=== PATIENT | female | born 1980 | race Caucasian/White ===

== ENCOUNTER → 2019-03-15 13:26 | Outpatient (CLI) | payer BC, SELFPAY ==
--- NOTE | 2019-03-15 13:36 | US_ITS ---
US breast RT complete INDICATION: Palpable nodule at 7:00 ORDERING PHYSICIAN: Ang Lopez PATIENT AGE: 38 years COMPARISON: 05/18/2013 TECHNIQUE: Right breast ultrasound complete axilla FINDINGS: At 7:00 there is an 8 x 3 x 6 mm cyst. This is near the nipple. At 10:00 there is a 4 mm cyst. No other abnormalities are evident. IMPRESSION: There is an 8 mm cyst at 7:00 region near the nipple which may correspond to the palpable abnormality. Suggest completing work up with right mammogram. BI-RADS Category: 0 Need Additional Imaging Evaluation RECOMMENDED FOLLOW-UP: IMM - IMMEDIATE FOLLOW-UP RECOMMENDED (A letter has been sent to the patient regarding results of the study.)
== END ==
PROVIDERS: PCP Internal Medicine; Visit Provider Internal Medicine
DX: N63.14 Unspecified lump in the right breast, lower inner quadrant (principal)
CPT/HCPCS: 76641

== ENCOUNTER → 2019-03-23 14:11 | Outpatient (CLI) | payer BC, SELFPAY ==
--- NOTE | 2019-03-23 14:22 | MM_ITS ---
MM Dig mamm BI DX w/CAD, US breast LT complete INDICATION: Follow-up palpable abnormality and abnormal ultrasound ORDERING PHYSICIAN: Ang Lopez PATIENT AGE: 38 years COMPARISON: 01/22/2013, 05/21/2013, 03/15/2019 TECHNIQUE: Standard images performed along with bilateral problem-solving views FINDINGS: There is average to dense fibroglandular tissue. A marker is placed in the retroareolar region of the right breast to paul an area of pain. Right breast: There is some asymmetric density in the medial aspect of the right breast appears to partially efface on the focal spot compression view.. Previous ultrasound demonstrated a 8 x 6 mm cyst at 7:00 and a 4 mm cyst at 10:00 within the right breast. Left breast: There is a focal asymmetric density in the central aspect of the left breast which measures 7 x 5 mm. An additional asymmetric density is present in the medial aspect of the left breast at 7 mm. Both of these areas appear to partially compress out on the focal spot compression views. Rolled views and ML views do not demonstrate a persistent nodule. Left breast ultrasound: At 11:00 there is a 4 mm cyst. There is a 4 mm cyst also 12:00 and a 5 mm cyst at 2:00. A 5 mm cyst is noted in the 5:00 periareolar region. 5 mm cyst is present at 6:00. 4 mm cyst at 11:00. No suspicious nodules. IMPRESSION: Probably benign findings. Asymmetric densities are present in both breasts for which six-month follow-up is suggested. No convincing evidence of malignancy BI-RADS Category: 3 Probably Benign Finding Short Term Follow-up RECOMMENDED FOLLOW-UP: 6M - 6 MONTH FOLLOW-UP (A letter has been sent to the patient regarding results of the study.) Partial or hilar ultrasound
== END ==
PROVIDERS: PCP Internal Medicine; Visit Provider Internal Medicine
DX: N60.01 Solitary cyst of right breast (principal)
CPT/HCPCS: 76641; 77066